=== PATIENT | female | born 1985 | race Caucasian/White ===

== ENCOUNTER 2018-12-06 09:56 | Emergency (ER) | payer OTHER ==
[2018-12-06 10:05] VITALS: BP 127/98
[2018-12-06] MEDS ORDERED: DOXYCYCLINE HYCLATE 100 MG TABLET PO ONE (10:52)
[2018-12-06] MEDS ORDERED: DIPHENHYDRAMINE HCL 25 MG CAPSULE PO ONE (10:52)
[2018-12-06] MEDS ORDERED: PREDNISONE 20 MG TABLET PO ONE (10:53)
--- NOTE | 2018-12-06 10:56 | ER Document Report ---
HPI - HPI Time Seen by Provider: 12/06/18 10:37 Pain Level: 5 Notes: Patient is an otherwise healthy 32-year-old female who presents the emergency department swelling to her upper lip. Patient reports she thinks she has a staph infection. Patient reports that she saw her doctor last week and they placed her on mupirocin ointment. Patient reports that was for a similar rash but in a different location. Patient reports her boyfriend has an active staph infection as well. - REPRODUCTIVE Reproductive: DENIES: : Past Medical History - General Information source: Patient - Social History Smoking Status: Never Smoker Family History: Reviewed & Not Pertinent Patient has suicidal ideation: No Patient has homicidal ideation: No - Medical History Medical History: Negative Renal/ Medical History: Denies: Hx Peritoneal Dialysis Surgical Hx: Negative - Immunizations Immunizations up to date: Yes Vertical Provider Document - CONSTITUTIONAL Notes: PHYSICAL EXAMINATION: GENERAL: Well-appearing, well-nourished and in no acute distress. HEAD: Atraumatic, normocephalic. EYES: Pupils equal round extraocular movements intact, conjunctiva are normal. ENT: Nares patent NECK: Normal range of motion LUNGS: No respiratory distress Musculoskeletal: Normal range of motion NEUROLOGICAL: Normal speech, normal gait. PSYCH: Normal mood, normal affect. SKIN: Warm, Dry, normal turgor, no rashes or lesions noted. Mild swelling with crusting and erythema noted to upper lip. Course - Re-evaluation Re-evalutation: Patient's examination consistent with mild cellulitis to upper lip. - Vital Signs Vital signs: Temp Pulse Resp BP Pulse Ox 98.5 F 99 14 127/98 H 100 12/06/18 10:04 12/06/18 10:04 12/06/18 10:04 12/06/18 10:04 12/06/18 10:04 Discharge - Discharge Clinical Impression: Lip swelling Cellulitis Qualifiers: Site of cellulitis: face Qualified Code(s): L03.211 - Cellulitis of face Condition: Stable Disposition: HOME, SELF-CARE Additional Instructions: Please continue using the mupirocin ointment to the outside of her lip. Please start taking the medications that are prescribed. Please also take Benadryl 50 mg every 6 hours. Benadryl may make you sleepy so do not drive while taking it. Please apply warm compresses to the area at least 3-4 times daily. Please fol low-up with your primary doctor in the next 3-4 days. Return to the emergency department if you develop worsening of the swelling, you develop a fever or any other symptom that is concerning to you. Prescriptions: Doxycycline Hyclate 100 mg PO BID #14 capsule Prednisone [Deltasone 20 mg Tablet] 3 tab PO DAILY 4 Days #12 tablet
== END 2018-12-06 11:02 | disposition home or self-care (01) ==
LOC: ER 09:56
DX: L03.211 Cellulitis of face (principal); R22.0 Localized swelling, mass and lump, head; R21 Rash and other nonspecific skin eruption
CPT/HCPCS: 99283; J7512

== ENCOUNTER 2018-12-09 08:58 | Emergency (ER) | payer OTHER ==
--- NOTE | 2018-12-09 09:55 | ER Document Report ---
ED Medical Screen (RME) - General Chief Complaint: Abscess Stated Complaint: SWOLLEN LIP Time Seen by Provider: 12/09/18 09:52 Notes: 32-year-old female patient seen here 3 days ago for sore on the upper lip. Been using mupirocin ointment, and was prescribed doxycycline and prednisone. It is gotten worse. It is now pointing with a white head consistent with small abscess developing. I have greeted and performed a rapid initial assessment of this patient. A comprehensive ED assessment and evaluation of the patient, analysis of test results and completion of the medical decision making process will be conducted by additional ED providers. - Related Data Allergies/Adverse Reactions: cephalexin [From Keflex] Allergy (Mild, Verified 12/09/18 09:00) Hives Past Medical History - Social History Chew tobacco use (# tins/day): No Frequency of alcohol use: None Drug Abuse: None Renal/ Medical History: Denies: Hx Peritoneal Dialysis Physical Exam - Vital signs Vitals: Temp Pulse Resp BP Pulse Ox 98.4 F 83 18 129/84 H 100 12/09/18 09:13 12/09/18 09:13 12/09/18 09:13 12/09/18 09:13 12/09/18 09:13 Course - Vital Signs Vital signs: Temp Pulse Resp BP Pulse Ox 98.4 F 83 18 129/84 H 100 12/09/18 09:13 12/09/18 09:13 12/09/18 09:13 12/09/18 09:13 12/09/18 09:13
--- NOTE | 2018-12-09 10:16 | ER Document Report ---
ED General - General Chief Complaint: Abscess Stated Complaint: SWOLLEN LIP Time Seen by Provider: 12/09/18 09:52 Primary Care Provider: VITALY MEMBRENO MD [COMMUNITY BASED STAFF] - Follow up in 3-5 days (or your primary care. ) Notes: Patient is a 32-year-old female that presents to the emergency department for chief complaint of right upper lip swelling. Patient was seen in the emergency department a few days ago, for similar symptoms, thought it was a cold sore, placed on Bactroban ointment, as well as doxycycline and prednisone and discharged home. She states that she is been applying a warm compress, and eventually came to ahead, but is still swollen and painful so she decided come back to the emergency department. She denies any any fevers, chills, night sweats, chest pain, shortness of breath, nausea, vomiting or diarrhea. She currently rates her pain as a 4 out of 10 describes as an aching sensation that is constant in her right upper lip. Past Medical History: Denies chronic medical conditions Past Surgical History: Denies surgical history Social History: States she is up-to-date with tetanus vaccination, admits to smoking cigarettes, denies alcohol or drug use Family History: Reviewed and noncontributory for presenting illness Allergies: Reviewed, see documented allergy list. REVIEW OF SYSTEMS: Other than noted above, the 12 point review of systems was reviewed with the patient and were negative, all pertinent findings are included in the HPI. PHYSICAL EXAMINATION: Vital signs reviewed, nursing noted reviewed. GENERAL: Well-appearing, well-nourished and in no acute distress. HEAD: Atraumatic, normocephalic. EYES: Eyes appear normal, sclera anicteric, conjunctiva are normal. ENT: Moist mucous membranes. The right upper lip, is edematous, tender to palpate, there is a head of an abscess noted in the on the lip. NECK: Normal range of motion, supple without lymphadenopathy LUNGS: Breath sounds clear to auscultation bilaterally and equal. No wheezes rales or rhonchi. HEART: Regular rate and rhythm without murmurs EXTREMITIES: Nontender, good range of motion, no pitting or edema. NEUROLOGICAL: No focal neurological deficits. Moves all extremities spontaneous ly Motor and sensory grossly intact on exam. PSYCH: Normal mood, normal affect. SKIN: Warm, Dry, normal turgor, no rashes or lesions noted on exposed skin - Related Data Allergies/Adverse Reactions: cephalexin [From Keflex] Allergy (Mild, Verified 12/09/18 09:00) Hives Past Medical History - Social History Smoking Status: Current Every Day Smoker Chew tobacco use (# tins/day): No Frequency of alcohol use: None Drug Abuse: None Family History: Reviewed & Not Pertinent Patient has suicidal ideation: No Patient has homicidal ideation: No Renal/ Medical History: Denies: Hx Peritoneal Dialysis Physical Exam - Vital signs Vitals: Temp Pulse Resp BP Pulse Ox 98.4 F 83 18 129/84 H 100 12/09/18 09:13 12/09/18 09:13 12/09/18 09:13 12/09/18 09:13 12/09/18 09:13 Course - Re-evaluation Re-evalutation: Patient seen and examined, vital signs reviewed. Patient was noted to have a right upper lip abscess, though is coming to ahead, this was incised and drained as noted in procedure note, patient tolerated well, discharged home on clindamycin and advised to follow-up with a primary care physician. She is also advised to use warm compresses, to continue draining this abscess. - Vital Signs Vital signs: Temp Pulse Resp BP Pulse Ox 98.4 F 70 18 127/84 H 100 12/09/18 09:13 12/09/18 11:56 12/09/18 11:56 12/09/18 11:56 12/09/18 09:13 Procedures - Incision and Drainage Right Face Type: Simple Anesthetic type: 1% Lidocaine Incision Method: Incision made with needle Amount/type of drainage: 1.5mL Notes: Patient had a left upper lip abscess present, that was coming to ahead, he was injected with 0.5 mL's of 1% lidocaine, and using 18-gauge needle, the abscess was incised, and the abscess was drained, purulent discharge was expelled, patient tolerated well. No complications. Discharge - Discharge Clinical Impression: Abscess Condition: Stable Disposition: HOME, SELF-CARE Instructions: Abscess ([facility]), Post Incision and Drainage Additional Instructions: Please take the entire course of antibiotics prescribed, and take as directed, you can use warm compresses to your lip for 20 minutes on and 20 minutes off to help promote further drainage. Prescriptions: RX: Clindamycin HCl 300 mg PO QID #28 capsule Referrals: VITALY MEMBRENO MD [COMMUNITY BASED STAFF] - Follow up in 3-5 days (or your primary care. )
[2018-12-09 12:00] VITALS: BP 127/84
== END 2018-12-09 12:00 | disposition home or self-care (01) ==
LOC: ER 08:58
DX: L02.01 Cutaneous abscess of face (principal); F17.200 Nicotine dependence, unspecified, uncomplicated; Z88.3 Allergy status to other anti-infective agents
CPT/HCPCS: 99283

== ENCOUNTER 2019-08-22 09:18 | Emergency (ER) | payer OTHER ==
[2019-08-22] MEDS ORDERED: NORMAL SALINE 1000 ML 1,000 ML IV ONE (10:23)
[2019-08-22] MEDS ORDERED: DIPHENHYDRAMINE HCL 50 MG/ML VIAL IV ONE (10:23)
[2019-08-22] MEDS ORDERED: PROCHLORPERAZINE EDISYLATE INJ 10 MG/2 ML VIAL IV ONE (10:24)
[2019-08-22] MEDS ORDERED: KETOROLAC TROMETHAMINE INJ/PF 30 MG/1 ML SDV IV ONE (10:25)
--- NOTE | 2019-08-22 11:10 | ER Document Report ---
Entered by ZAY LAM SCRIBE 08/22/19 1023 Acting as scribe for:ERVIN POE MD ED Headache - General Chief Complaint: Headache Stated Complaint: HEADACHE Time Seen by Provider: 08/22/19 10:05 Mode of Arrival: Ambulatory Information source: Patient Notes: 33-year-old female with a history of migraine headaches that presents to the emergency department today with complaints of a migraine headache. Patient states that she is prescribed Maxalt and amitriptyline for her migraine headaches however she has taken the last of her Maxalt prescription and it can not be refilled again until 08/25. She does admit that she is taking Maxalt too frequently, and that is why she has run out. TRAVEL OUTSIDE OF THE [place] IN LAST 30 DAYS: No - Related Data Allergies/Adverse Reactions: cephalexin [From Keflex] Allergy (Mild, Verified 08/22/19 09:29) Hives Home Medications: doxy, bcp, amitriptyline, maxalt. Past Medical History - General Information source: Patient - Social History Smoking Status: Current Every Day Smoker Cigarette use (# per day): Yes - 1/2 ppd Chew tobacco use (# tins/day): No Frequency of alcohol use: None Drug Abuse: None Lives with: Spouse/Significant other Family History: Reviewed & Not Pertinent Patient has suicidal ideation: No Patient has homicidal ideation: No Neurological Medical History: Reports: Hx Migraine Past Surgical History: Reports: Hx Dilation and Curettage Review of Systems - Review of Systems Constitutional: No symptoms reported EENT: See HPI, Ear pain - left Cardiovascular: No symptoms reported Respiratory: No symptoms reported Gastrointestinal: No symptoms reported Genitourinary: No symptoms reported Female Genitourinary: No symptoms reported Musculoskeletal: No symptoms reported Skin: No symptoms reported Hematologic/Lymphatic: No symptoms reported Neurological/Psychological: See HPI, Headaches -: Yes All other systems reviewed and negative Physical Exam - Vital signs Vitals: Temp Pulse Resp BP Pulse Ox 97.6 F 69 18 154/86 H 100 08/22/19 09:23 08/22/19 09:23 08/22/19 09:23 08/22/19 09:23 08/22/19 09:23 - Notes Notes: Physical Exam: General: Alert, appears well. HEENT: Normocephalic. Atraumatic. PERRL. Extraocular movements intact. Oropharynx clear. Left temporal muscles are very tender with palpation, mild left sided posterior cervical musculature tenderness to palpation. There is no pain with palpation of the ear, no pain in ear with tugging of ear lobe. External canal is normal in appearance. Neck: Supple. Non-tender. Respiratory: No respiratory distress. Clear and equal breath sounds bilaterally. Cardiovascular: Regular rate and rhythm. Abdominal: Normal Inspection. Non-tender. No distension. Normal Bowel Sounds. Back: No gross abnormalities. Extremities: Moves all four extremities. Upper extremities: Normal inspection. Normal ROM. Lower extremities: Normal inspection. No edema. Normal ROM. Neurological: Normal cognition. AAOx4. Normal speech. Photophobic. Psychological: Normal affect. Normal Mood. Skin: Warm. Dry. Normal color. Course - Re-evaluation Re-evalutation: 08/22/19 11:32 Patient reports that her headache is much better and she is ready to go home. As far she knows, she has never received the Benadryl, Compazine, NSAIDs cocktail for her headaches. She is advised that she can do this at home which may help her reduce her reliance on Maxalt. - Vital Signs Vital signs: Temp Pulse Resp BP Pulse Ox 97.6 F 69 18 154/86 H 100 08/22/19 09:23 08/22/19 09:23 08/22/19 09:23 08/22/19 09:23 08/22/19 09:23 Discharge - Discharge Clinical Impression: Headache Qualifiers: Headache type: unspecified Headache chronicity pattern: acute headache Intractability: not intractable Qualified Code(s): R51 - Headache Condition: Stable Disposition: HOME, SELF-CARE Additional Instructions: Migraine Headache The physician feels that your symptoms are due to a migraine attack. Migraines are caused by changes in the blood vessels of the head. Arteries go into spasm, often causing warning symptoms that a headache may begin soon. As the spasm goes away, the vessels dilate and throb, causing the pounding pain of a migraine headache. Migraines often cause nausea and vomiting. The treatment of headaches varies with severity and cause of pain. Not all headaches need pain shots -- in fact, there is evidence that using narcotics for headaches may make them worse in the long run. The physician will determine the therapy that's in your best interest for this particular headache. Medications are available that may prevent migraines, or stop them as they first occur. If one medication is not helpful, try another. If migraines are frequent, be patient -- follow the doctor's recommendations. Call the physician if you are worsening, or if new symptoms arise. Take the Compazine as prescribed with Benadryl and ibuprofen the next time you have a severe headache, see if that will help you reduce the frequency of needing Maxalt. Follow-up with your primary care provider, or whomever manages your headaches. RETURN TO THE EMERGENCY ROOM IF ANY NEW OR WORSENING SYMPTOMS. Prescriptions: Prochlorperazine Maleate [Compazine 5 Mg Tablet] 5 mg PO ASDIR PRN #20 tablet PRN Reason: Scribe Attestation: 08/22/19 11:34 I personally performed the services described in the documentation, reviewed and edited the documentation which was dictated to the scribe in my presence, and it accurately records my words and actions. I personally performed the services described in the documentation, reviewed and edited the documentation which was dictated to the scribe in my presence, and it accurately records my words and actions.
[2019-08-22 11:41] VITALS: BP 113/76
== END 2019-08-22 11:41 | disposition home or self-care (01) ==
LOC: ER 09:18
DX: R51 Headache (principal); F17.210 Nicotine dependence, cigarettes, uncomplicated; Z88.3 Allergy status to other anti-infective agents
CPT/HCPCS: 99283; 96361; 96374; 96375; J1200; J1885; J0780; J7030